=== PATIENT | male | born 1960 | race Caucasian/White ===

== ENCOUNTER → 2016-10-05 | Outpatient (CLI) | payer BC ==
[~2016-10-05] MED LIST: CZR25 PO; SNG10 PO; SYN200 PO
--- NOTE | 2016-10-05 07:52 | DIAGNOSTIC IMAGING REPORT ---
CHEST CT WITHOUT CONTRAST CT DOSE: 568.08 mGy.cm HISTORY: Follow-up solitary pulmonary nodule. TECHNIQUE: Multiaxial CT images of the chest were performed without contrast. COMPARISON: Chest CT 06/04/2014. Chest CT 01/07/2012. FINDINGS: Stable 6 mm nodule within the right middle lobe on image 217. This demonstrates approximate 5 year stability and is considered to be benign. The central airways are patent. No new pulmonary nodules identified. No focal lung consolidations to suggest pneumonia. No pleural effusions. No pneumothorax. No mediastinal or hilar lymphadenopathy. Normal caliber thoracic aorta. The heart is normal in size. The visualized liver, spleen, and adrenal glands are unremarkable. IMPRESSION: Stable 6 mm pulmonary nodule within the right middle lobe. This demonstrates 5 year stability and is therefore considered to be benign. No additional follow-up is required. Electronically signed by: Nickolas Fairchild M.D. 10/05/2016 7:51 AM Dictated Date/Time: 10/05/2016 7:46 AM
--- NOTE | 2016-10-05 08:00 | DIAGNOSTIC IMAGING REPORT ---
THYROID ULTRASOUND HISTORY: Thyroid nodule. Follow-up. COMPARISON: Thyroid ultrasound 09/01/2015. FINDINGS: Right lobe: 5.6 x 1.9 x 1.4 cm. The gland remains heterogeneous. No nodules. Left lobe: 4.1 x 1.7 x 1.4 cm area gland remains heterogeneous. Stable 5 mm cystic nodule within the upper pole. This is consistent with a benign cyst. Isthmus: 2 mm in thickness. No nodules. IMPRESSION: Stable 5 mm cystic nodule within the left lobe which has benign imaging characteristics. No new thyroid nodules. Electronically signed by: Nickolas Fairchild M.D. 10/05/2016 7:59 AM Dictated Date/Time: 10/05/2016 7:56 AM
== END | disposition home or self-care (01) ==
LOC: C.CTS 07:01
PROVIDERS: ATTEND Nurse Practitioner Family
DX: E04.1 Nontoxic single thyroid nodule (principal); Z87.898 Personal history of other specified conditions; R91.1 Solitary pulmonary nodule

== ENCOUNTER → 2017-04-16 | Outpatient (CLI) | payer BC ==
--- NOTE | 2017-04-16 08:41 | DIAGNOSTIC IMAGING REPORT ---
SOFT TISS HEAD/NECK-THYROID CLINICAL HISTORY: 57 years-old Male presenting with THYROID NODULE,HYPOTHYROIDISM, 6 MONTH F/U. TECHNIQUE: Real-time grayscale and color Doppler ultrasound imaging of the thyroid and base of the neck was performed. COMPARISON: 10/05/2016. FINDINGS: Right lobe: Heterogeneous echotexture, unchanged. The right lobe of the thyroid measures 5.3 x 1.6 x 1.7 cm. No nodules. No parenchymal hyperemia. Left lobe: Heterogeneous echotexture, unchanged. The left lobe of the thyroid measures 4.8 x 2.2 x 1.2 cm. Stable 6 mm cyst at the upper pole (benign). No parenchymal hyperemia. Isthmus: The isthmus measures 2 mm in thickness. No nodules. IMPRESSION: Stable examination. Heterogeneity of the gland compatible with underlying hypothyroidism. Electronically signed by: Callum Ojeda M.D. 04/16/2017 8:40 AM Dictated Date/Time: 04/16/2017 8:38 AM
== END | disposition home or self-care (01) ==
LOC: C.ULTR 08:11
PROVIDERS: ATTEND Nurse Practitioner Family
DX: E03.9 Hypothyroidism, unspecified (principal); E04.1 Nontoxic single thyroid nodule